=== PATIENT | female | born 1990 | race Caucasian/White ===

== ENCOUNTER 2021-03-14 22:12 | Emergency (ER) | payer OTHER ==
[2021-03-14 22:26] VITALS: BP 133/86; PULSE 100; TEMP 98; BMI 43.4
[2021-03-14 23:07] LABS: BASO % 0.9 % (0-2.0); EOS % 1.1 % (0-4.5); HEMATOCRIT 39.2 % (32.4-45.2); HEMOGLOBIN 13.1 GM/dL (10.7-15.3); MCH 26.7 pg (25.7-33.7); MCHC 33.3 g/dl (32.0-36.0); MEAN CELL VOLUME 80.4 fl (80-96); MONO % 5.8 % (3.8-10.2); NEUT % 64.2 % (42.8-82.8); PLATELET COUNT 198 10^3/uL (134-434); RBC 4.88 M/mm3 (3.60-5.2); RDW 14.3 % (11.6-15.6); WHITE BLOOD COUNT 10.5 K/mm3 (4.0-10.0)
[2021-03-14 23:32] LABS: CHLORIDE 106 mmol/L (98-107); SODIUM 138 mmol/L (136-145)
[2021-03-14 23:34] LABS: ALBUMIN 3.6 g/dl (3.4-5.0); CALCIUM 8.8 mg/dL (8.5-10.1)
[2021-03-14 23:35] LABS: ANION GAP 8 MMOL/L (8-16); CO2 24 mmol/L (21-32); GLUCOSE,RANDOM 130 mg/dL (74-106)
[2021-03-14 23:36] LABS: BLOOD UREA NITROGEN 9.5 mg/dL (7-18)
[2021-03-14 23:37] LABS: SGOT/AST 33 U/L (15-37); SGPT/ALT 40 U/L (13-61)
[2021-03-14 23:38] LABS: CREATININE 0.6 mg/dL (0.55-1.3)
[2021-03-14 23:39] LABS: BILIRUBIN,TOTAL 0.2 mg/dL (0.2-1); TOT PROT 7.6 g/dl (6.4-8.2)
[2021-03-14 23:40] LABS: ALK PHOS 81 U/L (45-117)
[2021-03-14 23:42] LABS: EPI CELLS 2 /uL (0-25.1); HYALINE CASTS 0 /uL (0-3.1); PH,URINE 5.5 (5.0-8.0); URINE APPEARANCE CLEAR; URINE BACTERIA 101 /uL (0-1359); URINE BILIRUBIN NEGATIVE (NEGATIVE); URINE COLOR YELLOW; URINE GLUCOSE (UA) NEGATIVE (NEGATIVE); URINE KETONE NEGATIVE (NEGATIVE); URINE LEUK ESTERASE NEGATIVE (NEGATIVE); URINE NITRITE NEGATIVE (NEGATIVE); URINE PROTEIN NEGATIVE (NEGATIVE); URINE RBC 41 /uL (0-23.9); URINE UROBILINOGEN 0.2 mg/dL (0.2-1.0); URINE WBC 3 /uL (0-25.8)
== END 2021-03-15 03:15 | disposition home or self-care (01) ==
LOC: JER 22:12
DX: R07.9 Chest pain, unspecified (principal); R42 Dizziness and giddiness
CPT/HCPCS: 36415; 71275-TC; 80053; 81003; 82550; 84443; 84484; 84703; 85025; 85379; 87086; 87186; 93005; 93010; 99285-25; Q9967